=== PATIENT | male | born 1985 | race Caucasian/White ===

== ENCOUNTER 2022-12-25 16:48 | Outpatient (CLI) | payer MEDICAID | END 2022-12-25 23:59 | disposition EMS.NT | LOC: EMS 16:48 | DX: F41.9 Anxiety disorder, unspecified (principal); F16.90 Hallucinogen use, unspecified, uncomplicated ==

== ENCOUNTER 2022-12-25 21:04 | Outpatient (CLI) | payer MEDICAID | END 2022-12-25 23:59 | disposition critical access hospital (66) | LOC: EMS 21:04 | DX: R45.6 Violent behavior (principal); R46.89 Other symptoms and signs involving appearance and behavior; S00.83XA Contusion of other part of head, initial encounter; W22.8XXA Striking against or struck by other objects, initial encounter; Y92.028 Other place in mobile home as the place of occurrence of the external cause; Z78.1 Physical restraint status; F16.90 Hallucinogen use, unspecified, uncomplicated | CPT/HCPCS: A0425; A0427; A0999 ==

== ENCOUNTER 2022-12-25 21:32 | Emergency (ER) | payer MEDICAID ==
--- NOTE | 2022-12-25 21:52 | ED Physician Documentation ---
Restraint [id number] - Immediate Situation Face to Face Evaluation Date: 12/25/22 Face to Face Evaluation Time: 21:50 Restraint Classification: Violent, physical Restraint Type: Locked extremity - Patient's Reaction & Behaviors Safety: Physically safe, Unable to Follow Commands Harm: Actual harm to self (The patient was repeatedly hitting his head on the concrete and attempting to strangle self just prior to transport, and was violent in the rig, requiring chemical sedation prior to arrival, as well as four-point restraints.), Potential harm to others Physical: Aggressive behavior - Behavioral Condition Attitude: Other (Sedated) Behavior: Other (Sedated) Orientation: Non-responsive Mood: Other (Sedated/Unconscious) - Evaluation Review of Systems: See main note Pertinent History/Illicit Drugs/Medications/Results: The patient used hallucinogenic mushrooms prior to EMS transport and has been hallucinating, agitated, violent toward family and neighbors, and violent towards self under the influence. - Plan Need to Continue or Terminate Violent or Chemical Restraint: We will continue to monitor the patient and determine whether, based on his behavior, restraint continuation is needed.
[2022-12-25 22:10] LABS: BASOPHILS % (AUTO) 0.2 %; EOSINOPHILS # (AUTO) 0.1 10^3/uL (0.0-0.7); EOSINOPHILS % (AUTO) 1.1 %; HCT - HEMATOCRIT 45.5 % (42.0-52.0); HGB - HEMOGLOBIN 15.2 g/dL (14.0-18.0); LYMPHOCYTES # (AUTO) 1.7 10^3/uL (1.5-3.5); MEAN CORPUSCULAR HEMOGLOBIN 29.9 pg (27.0-31.0); MEAN CORPUSCULAR HGB CONC 33.4 g/dL (32.0-36.0); MEAN CORPUSCULAR VOLUME 89.6 fL (80.0-94.0); MEAN PLATELET VOLUME 10.6 fL (7.4-11.4); MONOCYTES # (AUTO) 0.6 10^3/uL (0.0-1.0); MONOCYTES % (AUTO) 5.4 %; NEUTROPHILS # (AUTO) 8.1 10^3/uL (1.5-6.6); NEUTROPHILS % (AUTO) 77.1 %; PLT - PLATELET COUNT 208 10^3/uL (130-450); RED BLOOD COUNT 5.08 10^6/uL (4.70-6.10); RED CELL DISTRIBUTION WIDTH 11.4 % (12.0-15.0); WHITE BLOOD COUNT 10.4 x10^3/uL (4.8-10.8)
[2022-12-25 22:20] LABS: MUDS CUTOFF CONCENTRATIONS CUTOFF CONC BELOW:
[2022-12-25 22:24] LABS: ALBUMIN 4.1 g/dL (3.2-5.5); ALBUMIN/GLOBULIN RATIO 1.2 (1.0-2.2); ALKALINE PHOSPHATASE 56 IU/L (42-121); ALT ALANINE AMINOTRANSFERASE 20 IU/L (10-60); AST ASPARTATE AMINOTRANSFERASE 21 IU/L (10-42); BILIRUBIN,TOTAL 0.7 mg/dL (0.2-1.0); BUN - BLOOD UREA NITROGEN 23 mg/dL (6-20); CALCIUM 8.9 mg/dL (8.5-10.3); CARBON DIOXIDE - CO2 25 mmol/L (21-32); CHLORIDE 102 mmol/L (101-111); CREATININE 1.1 mg/dL (0.6-1.2); ETOH - ETHANOL < 5.0 mg/dL; GFR - MDRD 75 (>89); GLUCOSE 99 mg/dL (70-100); LIPASE 27 U/L (22-51); POTASSIUM 2.7 mmol/L (3.5-5.0); SODIUM 136 mmol/L (135-145); TOTAL PROTEIN 7.6 g/dL (6.7-8.2)
[2022-12-25 22:24] LABS: BILIRUBIN,URINE NEGATIVE (NEGATIVE); GLUCOSE, URINE (UA) NEGATIVE (NEGATIVE); KETONES,URINE (UA) NEGATIVE (NEGATIVE); LEUKOCYTE ESTERASE, URINE NEGATIVE (NEGATIVE); NITRITE,URINE NEGATIVE (NEGATIVE); OCCULT BLOOD,URINE NEGATIVE (NEGATIVE); PROTEIN,URINE NEGATIVE (NEGATIVE); UROBILINOGEN,URINE 0.2 (NORMAL) E.U./dL (NORMAL)
[2022-12-25 22:25] LABS: CLARITY,URINE CLEAR (CLEAR)
[2022-12-25 22:33] LABS: THC CANNABINOID SCREEN, URINE POSITIVE (NEGATIVE)
[2022-12-25 22:34] LABS: AMPHETAMINE SCREEN,URINE POSITIVE (NEGATIVE); BARBITURATE SCREEN,UR NEGATIVE (NEGATIVE); BENZODIAZEPINES SCREEN, URINE NEGATIVE (NEGATIVE); COCAINE SCREEN URINE NEGATIVE (NEGATIVE); METHADONE SCREEN, URINE NEGATIVE (NEGATIVE); METHAMPHETAMINES SCREEN, URINE POSITIVE (NEGATIVE); OPIATE SCREEN, URINE NEGATIVE (NEGATIVE); OXYCODONE SCREEN, URINE NEGATIVE (NEGATIVE); PROPOXYPHENE SCREEN, URINE NEGATIVE (NEGATIVE); TRICYCLIC ANTIDEPRESSANT,URINE NEGATIVE (NEGATIVE)
[2022-12-26 00:34] VITALS: BP 108/76
--- NOTE | 2022-12-26 01:10 | ED Physician Documentation ---
History of Present Illness - Stated complaint Stated Complaint: ARI/COMBATIVE - Chief complaint Chief Complaint: Neuro - History obtained from History obtained from: EMS - Additonal information Additional information: The patient is brought to the emergency department by EMS for chief complaint of agitation and violence after taking mushrooms and methamphetamine. The patient is not able to offer any information at this time, as the medics gave him Versed in route to calm him down. He apparently was acting bizarrely out in the [place] and then threatened a neighbor. It is thought that the patient took the mushrooms around 1130 this morning. Is not exactly clear where the patient took methamphetamines. PD PAST MEDICAL HISTORY - Allergies Allergies/Adverse Reactions: Allergies Allergy/AdvReac Type Severity Reaction Status Date / Time Unable to Assess Allergy Verified 12/25/22 21:54 PD ED PE NORMAL - Vitals Vital signs reviewed: Yes - General General: Other (Somnolent patient, unresponsive to noxious stimuli.) - HEENT HEENT: Atraumatic, PERRL, Moist mucous membranes - Neck Neck: Supple, no meningeal sign - Cardiac Cardiac: RRR, No murmur, Strong equal pulses - Respiratory Respiratory: No respiratory distress, Clear bilaterally - Abdomen Abdomen: Soft, Non tender, Non distended - Derm Derm: Normal color, Warm and dry, No rash - Extremities Extremities: No deformity, No edema - Neuro Neuro: Other (Moves x4 extremities occasionally. Patient is not alert.) - Psych Psych: Normal mood, Normal affect Results - Vitals Vitals: Oxygen O2 Source Room air - Labs Labs: Laboratory Tests 12/25/22 12/25/22 12/25/22 22:03 22:03 22:03 WBC 10.4 RBC 5.08 Hgb 15.2 Hct 45.5 MCV 89.6 MCH 29.9 MCHC 33.4 RDW 11.4 L Plt Count 208 MPV 10.6 Neut # (Auto) 8.1 H Lymph # (Auto) 1.7 [place] # (Auto) 0.6 Eos # (Auto) 0.1 Baso # (Auto) 0.0 Absolute Nucleated RBC 0.00 Nucleated RBC % 0.0 Sodium 136 Potassium 2.7 L Chloride 102 Carbon Dioxide 25 Anion Gap 9.0 BUN 23 H Creatinine 1.1 Estimated GFR (MDRD) 75 L Glucose 99 Calcium 8.9 Total Bilirubin 0.7 AST 21 ALT 20 Alkaline Phosphatase 56 Total Protein 7.6 Albumin 4.1 Globulin 3.5 Albumin/Globulin Ratio 1.2 Lipase 27 TSH 3.08 Urine Color Urine Clarity Urine pH Ur Specific [place] Urine Protein Urine Glucose (UA) Urine Ketones Urine Occult Blood Urine Nitrite Urine Bilirubin Urine Urobilinogen Ur Leukocyte Esterase Ur Microscopic Review Urine Culture Comments Urine Opiates Screen Ur Oxycodone Screen Urine Methadone Screen Ur Propoxyphene Screen Ur Barbiturates Screen Ur Tricyclics Screen Ur Phencyclidine Scrn Ur Amphetamine Screen U Methamphetamines Scrn U Benzodiazepines Scrn Urine Cocaine Screen U Cannabinoids Screen Ethyl Alcohol < 5.0 12/25/22 22:16 WBC RBC Hgb Hct MCV MCH MCHC RDW Plt Count MPV Neut # (Auto) Lymph # (Auto) [place] # (Auto) Eos # (Auto) Baso # (Auto) Absolute Nucleated RBC Nucleated RBC % Sodium Potassium Chloride Carbon Dioxide Anion Gap BUN Creatinine Estimated GFR (MDRD) Glucose Calcium Total Bilirubin AST ALT Alkaline Phosphatase Total Protein Albumin Globulin Albumin/Globulin Ratio Lipase TSH Urine Color YELLOW Urine Clarity CLEAR Urine pH 6.0 Ur Specific [place] 1.025 Urine Protein NEGATIVE Urine Glucose (UA) NEGATIVE Urine Ketones NEGATIVE Urine Occult Blood NEGATIVE Urine Nitrite NEGATIVE Urine Bilirubin NEGATIVE Urine Urobilinogen 0.2 (NORMAL) Ur Leukocyte Esterase NEGATIVE Ur Microscopic Review NOT INDICATED Urine Culture Comments NOT INDICATED Urine Opiates Screen NEGATIVE Ur Oxycodone Screen NEGATIVE Urine Methadone Screen NEGATIVE Ur Propoxyphene Screen NEGATIVE Ur Barbiturates Screen NEGATIVE Ur Tricyclics Screen NEGATIVE Ur Phencyclidine Scrn NEGATIVE Ur Amphetamine Screen POSITIVE H U Methamphetamines Scrn POSITIVE H U Benzodiazepines Scrn NEGATIVE Urine Cocaine Screen NEGATIVE U Cannabinoids Screen POSITIVE H Ethyl Alcohol PD Medical Decision Making - ED course Complexity details: reviewed results, re-evaluated patient, considered differential, d/w patient ED course: The patient was evaluated in the emergency department upon arrival with EMS. He was somnolent for a couple of hours, after which she began to gradually wake up. Upon awakening, the patient was calm and cooperative and was given a meal. He reported that he takes methamphetamines every day and his last use was this afternoon. He denied any suicidal or homicidal ideation. He did remember his bizarre behavior, but stated that he thought people were out to get him and that was what prompted him to react. I felt the patient was stable for discharge home. We have discussed that there are resources for getting help with his drug use if he would like, the patient does not desire this at this time. We have discussed the usual indications for return. Departure - Departure Disposition: 01 Home, Self Care Clinical Impression: Methamphetamine abuse, Psilocybin abuse Condition: Stable Instructions: ED Drug Abuse General Discharge Date/Time: 12/26/22 03:54
== END 2022-12-26 03:54 | disposition home or self-care (01) ==
LOC: ED 21:32
DX: F15.10 Other stimulant abuse, uncomplicated (principal); F19.10 Other psychoactive substance abuse, uncomplicated
CPT/HCPCS: 36415; 51701; 80053; 80306; 80320; 81001; 81003; 83690; 84443; 85025; 87086; 99284; 99285

== ENCOUNTER 2022-12-26 04:13 | Emergency (ER) | payer MEDICAID ==
--- NOTE | 2022-12-26 04:45 | ED Physician Documentation ---
History of Present Illness - Stated complaint Stated Complaint: SOA - Chief complaint Chief Complaint: General - History obtained from History obtained from: Patient - Additonal information Additional information: The patient returns to the emergency department after being discharged following intoxication with mushrooms and methamphetamines, stating that there is poison inside him and he is trying to vomit it out, but cannot vomit. Patient states "everyone thinks I am crazy when I say this, but I know there is poison inside me". He denies any abdominal pain or nausea. Despite the chief complaint listed by registration, the patient denies shortness of breath to me. No chest pain. No cough or fever. No other new developments since his discharge less than 1 hour ago. PD PAST MEDICAL HISTORY - Allergies Allergies/Adverse Reactions: Allergies Allergy/AdvReac Type Severity Reaction Status Date / Time Unable to Assess Allergy Verified 12/25/22 21:54 PD ED PE NORMAL - Vitals Vital signs reviewed: Yes - General General: Other (The patient is crying and anxious.) - HEENT HEENT: Atraumatic, PERRL, EOMI, Moist mucous membranes - Neck Neck: Supple, no meningeal sign - Cardiac Cardiac: RRR, No murmur, Strong equal pulses - Respiratory Respiratory: No respiratory distress, Clear bilaterally - Abdomen Abdomen: Soft, Non tender, Non distended - Derm Derm: Normal color, Warm and dry, No rash - Extremities Extremities: No deformity - Neuro Neuro: Alert and oriented X 3 - Psych Psych: Normal mood, Normal affect Results - Vitals Vitals: Oxygen O2 Source Room air PD Medical Decision Making - ED course Complexity details: considered differential, d/w patient ED course: I discussed with the patient that he does not have any poison in his stomach and that all he received here in the emergency department during his stay was a sandwich. I discussed with him that we are not going to make any attempt to induce vomiting. The patient decided he would like to leave which I felt was appropriate since he did not demonstrate any evidence of an emergent condition at this time. Departure - Departure Disposition: 01 Home, Self Care Clinical Impression: Nausea, Methamphetamine abuse Condition: Stable Instructions: ED Drug Abuse General Comments: You have not been given any medications in the emergency department, either on this visit around the last 1. It is clear why you believe there is poison in your stomach, but we do not have any means to make you vomit. If you wish to vomit, then you may try to get yourself to do so but this is not something the emergency department will do for you. Your laboratory studies have looked good overnight. Please consider getting help with your drug abuse. Discharge Date/Time: 12/26/22 05:11
[2022-12-26 05:11] VITALS: BP 102/69
== END 2022-12-26 05:11 | disposition home or self-care (01) ==
LOC: ED 04:13
DX: R11.0 Nausea (principal); F15.10 Other stimulant abuse, uncomplicated
CPT/HCPCS: 99283